=== PATIENT | female | born 1965 | race Caucasian/White ===

== ENCOUNTER 2019-05-01 21:28 | Emergency (ER) | payer OTHER ==
[~2019-05-01] VITALS: Ht 167.6 cm; Wt 81.2 kg
[2019-05-01] MEDS ORDERED: CONSTULOSE10 GM/15 M PO (21:38)
[2019-05-01] MEDS ORDERED: POTASSIUM20 PO (21:39)
[2019-05-01] MEDS ORDERED: KLONOPIN0.5 MG PO (21:39)
[2019-05-01] MEDS ORDERED: QUETIAPINE FUM100 MG PO (21:39)
[2019-05-01] MEDS ORDERED: MEDROLDOSEPACK PO (21:40)
[2019-05-01] MEDS ORDERED: SYNTHROID137 MC1 PO (21:40)
[2019-05-01] MEDS ORDERED: VENLAFAXINE HCL75 MG PO (21:41)
[2019-05-01] MEDS ORDERED: ALDACTONE50 MG PO (21:41)
[2019-05-01] MEDS ORDERED: EFFEXOR XR75 MG PO (21:42)
[2019-05-01] MEDS ORDERED: ZYRTEC 10 MG TA10 MG PO (21:42)
[2019-05-01] MEDS ORDERED: LASIX 40 MG TAB40 M2 PO (21:42)
[2019-05-01 22:02] LABS: BE -2.6 mmol/L (-2 to +3); PCO2 28.2 mmHg (35.0-45.0)
[2019-05-01 22:04] LABS: PO2 124.9 mmHg (75.0-100.0)
[2019-05-01 22:32] LABS: ABSOLUTE LYMPHOCYTES 0.3 thou/uL (0.8-5.3); ABSOLUTE MONOCYTES 0.3 thou/uL (0.0-1.2); ABSOLUTE NEUTROPHILS 2.6 thou/uL (1.6-8.1); BASOPHILS 0.3 %; EOSINOPHILS 0.5 %; HEMATOCRIT 27.4 % (37.0-47.0); HEMOGLOBIN 9.3 gm/dL (12.0-15.0); LYMPHOCYTES 9.7 %; MCH 35.1 pg (26.0-34.0); MCHC 34.1 g/dL (28.0-37.0); MCV 102.9 fL (80.0-100.0); MONOCYTES 8.3 %; MPV 7.2 fl. (7.2-11.1); NUCLEATED RBCS 0 /100WBC; PLATELET COUNT* 128 thou/uL (150-400); POLYS 81.2 %; RBC 2.66 mil/uL (4.20-5.00); RDW-CV 13.8 % (10.5-14.5); WBC 3.2 thou/uL (4.0-11.0)
[2019-05-01 22:56] LABS: INR 1.9
[2019-05-01 22:57] LABS: ANION GAP 14 mmol/L (7-16); BUN 21 mg/dL (7-18); CALCIUM 8.4 mg/dL (8.5-10.1); CHLORIDE 99 mmol/L (98-107); CO2 20 mmol/L (21-32); GLUCOSE 141 mg/dL (70-99); POTASSIUM 4.1 mmol/L (3.5-5.1); SODIUM 133 mmol/L (136-145)
[2019-05-01 22:58] LABS: URINE BILIRUBIN NEGATIVE (Negative); URINE BLOOD NEGATIVE (Negative); URINE CLARITY CLEAR; URINE COLOR DARK YELLOW; URINE GLUCOSE-RANDOM NEGATIVE (Negative); URINE KETONES NEGATIVE (Negative); URINE LEUKOCYTES-REFLEX NEGATIVE (Negative); URINE NITRITE-REFLEX NEGATIVE (Negative); URINE PROTEIN NEGATIVE (Negative); URINE UROBILINOGEN 0.2 E.U./dl (0.2-1.0)
[2019-05-01 23:04] LABS: AMP/METHAMP Negative (Negative); BARBITURATES Negative (Negative); BENZODIAZEPINES Negative (Negative); COCAINE Negative (Negative); METHADONE Negative (Negative); OPIATES Negative (Negative); PCP Negative (Negative); THC Negative (Negative)
[2019-05-01 23:07] LABS: ALKALINE PHOSPHATASE 101 U/L (46-116); AMMONIA 179 umol/L (11-32); LIPASE 86 U/L (73-393); MAGNESIUM 1.7 mg/dL (1.8-2.4); SGOT 79 U/L (15-37); SGPT 38 U/L (30-65); TOTAL BILIRUBIN 8.2 mg/dL (<0.1-1.0); TOTAL PROTEIN 6.2 g/dL (6.4-8.2); TROPONIN-I LEVEL <0.06 ng/mL (<0.06)
[2019-05-02 00:03] VITALS: BP 110/47
--- NOTE | 2019-05-02 10:23 | EKG ---
[place] [address] ELECTROCARDIOGRAM REPORT Name: MICKEY VALIENTE Room: REPLACED BY [facility] M.R.#: [id number] Admission: 05/01/19 Attend Phys: Discharge: 05/02/19 Date of : 63 Report #: [id number] THIS REPORT FOR: //name// [facility] ED Test Date: 2019-05-01 Test Time: 21:32:09 Pat Name: MIKCEY VALIENTE Department: Room: Gender: F Talk Show Host: : 1965 Requested By: Nallely Love Order Number: [id number] MD: Candelario Leong Measurements Intervals [place] Rate: 116 P: 80 AL: 139 QRS: 5 QRSD: 93 T: 55 QT: 365 QTc: 508 Interpretive Statements Sinus tachycardia artifact noted Probable left atrial enlargement Prolonged QT interval No previous ECG available for comparison Electronically Signed On 05-02-2019 10:23:30 CDT by Candelario Leong [email or web address] <ELECTRONICALLY SIGNED> By: Candelario Leong MD, [facility] 05/02/19 1023 2132 31 Candelario Leong MD, FACC /EPI
== END 2019-05-02 00:06 | disposition short-term general hospital (02) ==
LOC: M.ERS 21:28 → EDBD 21:28 → M.ERS 05-02 00:06
PROVIDERS: Personal Emergency Response Attendant
DX: S06.5X9A Traumatic subdural hemorrhage with loss of consciousness of unspecified duration, initial encounter (principal); K72.90 Hepatic failure, unspecified without coma; I95.9 Hypotension, unspecified; W18.39XA Other fall on same level, initial encounter; Y93.89 Activity, other specified; Y92.89 Other specified places as the place of occurrence of the external cause; Y99.8 Other external cause status